=== PATIENT | female | born 1965 | race Caucasian/White ===

== ENCOUNTER 2016-08-20 15:44 | Emergency (ER) | payer OTHER, MEDICAID ==
[~2016-08-20] VITALS: Ht 167.6 cm; Wt 65.0 kg
[~2016-08-20 15:44] MED LIST: CETI10 PO; DIAZ5TAB PO; GABA100C4 PO; IBUP400T20 PO; IBUP800T23 PO; LORA10TA PO; RANI150T PO
[2016-08-20 15:45] VITALS: BP 181/100; PULSE 100; RESP 24; TEMP 97.5; O2SAT 97
[2016-08-20 16:47] LABS: AUTOMATED NEUTROPHIL # 7.5 TH/MM3 (1.8-7.7); BASOPHIL # 0.1 TH/MM3 (0-0.2); BASOPHIL % 0.8 % (0.0-2.0); EOSINOPHIL # 0.1 TH/MM3 (0-0.4); EOSINOPHIL % 1.1 % (0.0-4.0); HEMATOCRIT 37.7 % (35.0-46.0); HEMO FLAGS DIFF FINAL; LYMPH % 18.3 % (9.0-44.0); LYMPHOCYTE # 1.9 TH/MM3 (1.0-4.8); MEAN CELL VOLUME 99.1 FL (80.0-100.0); MEAN CORPUSCULAR HEMOGLOBIN 34.8 PG (27.0-34.0); MEAN CORPUSCULAR HGB CONC 35.1 % (32.0-36.0); MONO % 6.8 % (0.0-8.0); PLATELET COUNT 313 TH/MM3 (150-450); WHITE BLOOD COUNT 10.3 TH/MM3 (4.0-11.0)
[2016-08-20 17:11] LABS: ANION GAP 10 MEQ/L (5-15); BICARBONATE 26.5 MEQ/L (21.0-32.0); BLOOD UREA NITROGEN 10 MG/DL (7-18); CHLORIDE 105 MEQ/L (98-107); GLOMERULAR FILTRATION RATE 87 ML/MIN (>89); POTASSIUM 3.9 MEQ/L (3.5-5.1); SODIUM (NA) 141 MEQ/L (136-145)
[2016-08-20 17:15] LABS: CREATINE KINASE 269 U/L (26-192)
[2016-08-20 17:28] LABS: CKMB 3.8 NG/ML (0.5-3.6)
[2016-08-20] MEDS ORDERED: LORazepam 2 MG/ML VIAL IV PUSH ONE (17:30)
[2016-08-20 18:17] VITALS: BP 149/96; PULSE 96; RESP 23; O2SAT 99
--- NOTE | 2016-08-20 18:51 | RADRPT ---
EXAM DATE/TIME: 08/20/2016 18:39 [place] COMPARISON: No previous studies available for comparison. INDICATIONS : Patient has had chest pain since yesterday. MEDICAL HISTORY : None. SURGICAL HISTORY : None. ENCOUNTER: Initial ACUITY: 1 day PAIN SCORE: 10/10 LOCATION: chest FINDINGS: PA and lateral views of the chest demonstrate the lungs to be symmetrically aerated without evidence of mass, infiltrate or effusion. The cardiomediastinal contours are unremarkable. Osseous structure s are intact. CONCLUSION: No acute disease. Tejas Beck MD on August 20, 2016 at 18:49 Board Certified Radiologist. This report was verified electronically.
--- NOTE | 2016-08-20 19:05 | PD ---
HPI Chief Complaint: Anxiety Time Seen by Provider: 17:16 Travel History International Travel<30 days: No Contact w/Intl Traveler<30days: No Traveled to known affect area: No History of Present Illness HPI Is a 51-year-old female presents emergency department for an anxiety attack. Patient states she had these many times in the past. She states she feels some difficulty breathing as well as a funny sensation in her chest. [facility] she is a , she has been on multiple medications the past including BuSpar which she is not currently taking any Having medicines. She states the only thing that worked for her in the past clonidine which she does not have any more of. Patient on arrival is tearful appears quite anxious and hyperactive. She denies any suicidal ideation and homicidal ideation. She does endorse depressed mood. She is an occasional smoker denies having blood pressure does have a history of high cholesterol with post menopausal. PFSH Past Medical History Anxiety: Yes Depression: Yes Diabetes: No Diminished Hearing: No Gastrointestinal Disorders: Yes GERD: Yes Immune Disorder: No Neurologic: Yes ?: Not Menopausal: Yes : 5 Para: 3 : 2 Past Surgical History Appendectomy: Yes Social History Alcohol Use: Yes Tobacco Use: No Substance Use: No Allergies-Medications (Allergen,Severity, Reaction): Coded Allergies: No Known Allergies (Unverified , 08/20/16) Reported Meds & Prescriptions Reported Meds & Active Scripts Active Ranitidine (Ranitidine HCl) 150 Mg Tab 150 Mg PO BID Ibuprofen 800 Mg Tab 800 Mg PO Q8H PRN Review of Systems Except as stated in HPI: all other systems reviewed are Neg Physical Exam Narrative GENERAL: Well-developed well-nourished appears quite anxious. SKIN: Warm and dry. HEAD: Atraumatic. Normocephalic. EYES: Pupils equal and round. No scleral icterus. No injection or drainage. ENT: No nasal bleeding or discharge. Mucous membranes pink and moist. NECK: Trachea midline. No JVD. CARDIOVASCULAR: Regular rate and rhythm. No murmur appreciated. RESPIRATORY: No accessory muscle use. Clear to auscultation. Breath sounds equal bilaterally. GASTROINTESTINAL: Abdomen soft, non-tender, nondistended. Hepatic and splenic margins not palpable. MUSCULOSKELETAL: No obvious deformities. No clubbing. No cyanosis. No edema. NEUROLOGICAL: Awake and alert. No obvious cranial nerve deficits. Motor grossly within normal limits. Normal speech. PSYCHIATRIC: Anxious and depressed affect. Depressed and anxious mood. Patient denies suicidal homicidal ideation. Cries during examination. Data Data Last Documented VS Vital Signs Date Time Temp Pulse Resp B/P Pulse Ox O2 Delivery O2 Flow Rate FiO2 08/20/16 19:07 103 22 140/85 98 08/20/16 18:17 Room Air 08/20/16 15:45 97.5 Orders Electrocardiogram (08/20/16 16:18) Complete Blood Count With Diff (08/20/16 16:18) Basic Metabolic Panel (Bmp) (08/20/16 16:18) Ckmb (Isoenzyme) Profile (08/20/16 16:18) Troponin I (08/20/16 16:18) CKMB (08/20/16 16:25) CKMB% (08/20/16 16:25) D-Dimer (08/20/16 17:25) Lorazepam Inj (Ativan Inj) (08/20/16 17:30) Chest, Pa & Lat (08/20/16 ) Labs Laboratory Tests Test 08/20/16 16:25 White Blood Count 10.3 TH/MM3 Red Blood Count 3.80 MIL/MM3 Hemoglobin 13.2 GM/DL Hematocrit 37.7 % Mean Corpuscular Volume 99.1 FL Mean Corpuscular Hemoglobin 34.8 PG Mean Corpuscular Hemoglobin 35.1 % Concent Red Cell Distribution Width 12.0 % Platelet Count 313 TH/MM3 Mean Platelet Volume 7.7 FL Neutrophils (%) (Auto) 73.0 % Lymphocytes (%) (Auto) 18.3 % Monocytes (%) (Auto) 6.8 % Eosinophils (%) (Auto) 1.1 % Basophils (%) (Auto) 0.8 % Neutrophils # (Auto) 7.5 TH/MM3 Lymphocytes # (Auto) 1.9 TH/MM3 Monocytes # (Auto) 0.7 TH/MM3 Eosinophils # (Auto) 0.1 TH/MM3 Basophils # (Auto) 0.1 TH/MM3 CBC Comment DIFF FINAL Differential Comment D-Dimer Quantitative (PE/DVT) LESS THAN 0.19 MG/L FEU Sodium Level 141 MEQ/L Potassium Level 3.9 MEQ/L Chloride Level 105 MEQ/L Carbon Dioxide Level 26.5 MEQ/L Anion Gap 10 MEQ/L Blood Urea Nitrogen 10 MG/DL Creatinine 0.71 MG/DL Estimat Glomerular Filtration 87 ML/MIN Rate Random Glucose 103 MG/DL Calcium Level 9.1 MG/DL Total Creatine Kinase 269 U/L Creatine Kinase MB 3.8 NG/ML Creatine Kinase MB % 1.4 % Troponin I LESS THAN 0.02 NG/ML MDM Medical Decision Making Medical Screen Exam Complete: Yes Emergency Medical Condition: Yes Interpretation(s) EKG shows normal sinus rhythm normal axis normal R-wave progression. Intervals within normal limits, this normal EKG. Differential Diagnosis Anxiety, PE, ND, ACS. Narrative Course Patient roomed in the emergency department, given Ativan 1 mg IV. D-dimer negative, troponin negative, EKG reassuring. Lengthy discussion with the patient regarding her symptoms could represent anxiety however cannot completely exclude ACS without a stress test. She does have risk factors including smoking hyper lipid and post menopausal. Discussed she needs to consider admission for a stress test and she declines this time stating [facility] Discussed with her that there is some rest doing this and she verbalized understanding and accepted risks of and disability. Discussed need for [facility] short with the [facility]. Patient then asked for prescriptions for benzodiazepines and I am disinclined to honor this request this time stating risk of addiction. I did offer Zoloft prescription for long-term control and she declined.. Diagnosis Primary Impression: Atypical chest pain Additional Impression: Panic attack Disposition: 01 DISCHARGE HOME Condition: Stable Kraig Diaz MD Aug 20, 2016 19:05
[2016-08-20 19:07] VITALS: BP 140/85
--- NOTE | 2016-08-20 20:39 | EKG ---
Date Performed: 08/20/2016 Time Performed: 16:25:00 PTAGE: 51 years EKG: Sinus rhythm WITH SHORT AK INTERVAL BORDERLINE ECG NO PREVIOUS TRACING DOCTOR: Joe Nunez Interpretating Date/Time 08/30/2016 07:12:57
== END 2016-08-20 19:29 | disposition home or self-care (01) ==
LOC: NEPE 15:44
DX: R07.89 Other chest pain (principal); F41.0 Panic disorder [episodic paroxysmal anxiety]; R94.31 Abnormal electrocardiogram [ECG] [EKG]; R06.00 Dyspnea, unspecified; E78.00 Pure hypercholesterolemia, unspecified; Z72.0 Tobacco use; Z78.0 Asymptomatic menopausal state; Z86.59 Personal history of other mental and behavioral disorders; Z87.19 Personal history of other diseases of the digestive system; Z86.69 Personal history of other diseases of the nervous system and sense organs
CPT/HCPCS: 71020; 80048; 82550; 82552; 84484; 85025; 85379; 93005; 96374; 99284; J2060

== ENCOUNTER 2016-10-17 09:45 | Emergency (ER) | payer OTHER, MEDICAID ==
[~2016-10-17] VITALS: Ht 167.6 cm; Wt 59.0 kg
[~2016-10-17 09:45] MED LIST changes: -CETI10 PO; -DIAZ5TAB PO; -GABA100C4 PO; -IBUP400T20 PO; -LORA10TA PO
[2016-10-17 09:48] VITALS: BP 138/65; PULSE 72; RESP 14; TEMP 98.2; O2SAT 98
--- NOTE | 2016-10-17 10:42 | PD ---
HPI . left thumb infection for 1 week Chief Complaint: Skin Problem Time Seen by Provider: 10:42 Travel History International Travel<30 days: No Contact w/Intl Traveler<30days: No Traveled to known affect area: No History of Present Illness HPI 51-year-old female here with complaints of left thumb infection for one week. Patient says that her tried to squeeze it for her and little bit of pus came out. She's been trying to take care of at home, but states that it's not getting better. She decided to come to the emergency department for further evaluation. She denies any fever or chills. She has no other complaints. PFSH Past Medical History Anxiety: Yes Depression: Yes Diabetes: No Diminished Hearing: No Gastrointestinal Disorders: Yes GERD: Yes Immune Disorder: No Neurologic: Yes ?: Not Menopausal: Yes : 5 Para: 3 : 2 Past Surgical History Appendectomy: Yes Social History Alcohol Use: Yes Tobacco Use: No Substance Use: No Allergies-Medications (Allergen,Severity, Reaction): Coded Allergies: No Known Allergies (Unverified , 10/17/16) Reported Meds & Prescriptions Reported Meds & Active Scripts Active Bactrim DS (Sulfamethoxazole-Trimethoprim) 800-160 Mg Tab 1 Tab PO BID Ranitidine (Ranitidine HCl) 150 Mg Tab 150 Mg PO BID Ibuprofen 800 Mg Tab 800 Mg PO Q8H PRN Review of Systems General / Constitutional: No: Fever Eyes: No: Visual changes HENT: No: Headaches Cardiovascular: No: Chest Pain or Discomfort Respiratory: No: Shortness of Breath Gastrointestinal: No: Abdominal Pain Genitourinary: No: Dysuria Musculoskeletal: No: Pain Skin: Positive Other (left thumb infection ), No Rash Neurologic: No: Weakness Psychiatric: No: Depression Endocrine: No: Polydipsia Hematologic/Lymphatic: No: Easy Bruising Physical Exam Narrative GENERAL: AAO x 3, no acute distress, Well-nourished, well-developed patient. SKIN: Warm and dry. No visible rashes or bruising. Left thumb with a small paronychia on the medial aspect. There is a slight area of induration and some fluctuance. HEAD: Normocephalic and atraumatic. EYES: No scleral icterus. No injection or drainage. EOM intact, PERRLA ENT: No nasal drainage noted. Mucous membranes pink. Airway patent. NECK: Supple, trachea midline. No JVD. CARDIOVASCULAR: Regular rate and rhythm without murmurs, gallops, or rubs. RESPIRATORY: Breath sounds equal bilaterally. No accessory muscle use. No rhonchi or rales. GASTROINTESTINAL: Abdomen soft, non-tender, nondistended. EXTREMITIES: No cyanosis or edema. BACK: Nontender without obvious deformity. No CVA tenderness. PSYCH: AAO x 3, normal affect. Data Data Last Documented VS Vital Signs Date Time Temp Pulse Resp B/P Pulse Ox O2 Delivery O2 Flow Rate FiO2 10/17/16 09:48 98.2 72 14 138/65 98 Orders Lidocaine 1% Inj (50 Ml) (Xylocaine 1% I (10/17/16 10:45) Wound Culture And Gram Stain (10/17/16 10:56) Change Dressing (10/17/16 11:08) MDM Medical Decision Making Medical Screen Exam Complete: Yes Emergency Medical Condition: Yes Medical Record Reviewed: Yes Differential Diagnosis Left thumb paronychia, cellulitis, less likely sepsis Narrative Course 51-year-old female here with complaints of left thumb infection for one week. Patient says that her tried to squeeze it for her and little bit of pus came out. She's been trying to take care of at home, but states that it's not getting better. She decided to come to the emergency department for further evaluation. She denies any fever or chills. She has no other complaints. Patient seen and examined. She has a left thumb paronychia. I recommend incision and drainage. Patient consents to procedure Patient tolerated without incident. Cultures were taken. If there are any abnormalities requiring change of antibiotics, we will contact the patient. I placed her on Bactrim to cover for MRSA. [facility]3 [facility]. We discussed cleaning the area with soap and water daily. Patient verbalized understanding of instructions, questions were answered, and thanked me for their care. I advised them if their condition worsens, please return to the nearest emergency room for further care. Procedures Procedure Narrative After the risks and benefits were discussed the following procedure was performed: left thumb paronychia INCISION AND DRAINAGE OF ABSCESS: The area was prepped and was sterilely draped. A subcutaneous wheal of 1 % Xylocaine with a total number 4 mL was used to anesthetize the area. The area was properly anesthetized. A number 11 scalpel was used to make a .04 -cm incision across the area of the abscess. Cultures were obtained. The abscess was drained an irrigated with normal saline. Sterile dressing applied. Diagnosis Primary Impression: Paronychia Qualified Code: L03.012 - Paronychia, left Patient Instructions: General Instructions Additional Instructions: [place] for worsening signs of infection which include increased fever,redness, increased warmth, purulent drainage, increased swelling or streaking. If any of these develop, please return to the nearest emergency department. Wash this area with soap and water daily. [facility] discussed. Med/Other Pt SpecificInfo: Prescription(s) given Scripts Sulfamethoxazole-Trimethoprim (Bactrim DS)800-160 Mg Tab1 Tab PO BID #20 TAB Prov:Kuldeep Vaz MD 10/17/16 Disposition: 01 DISCHARGE HOME Condition: Stable Cheryl Eason Oct 17, 2016 10:42
[2016-10-17] MEDS ORDERED: LIDOCAINE HCL 1% 50 ML VIAL INFIL ONE (10:45)
[2016-10-17] MEDS ORDERED: BACT800T5 PO (11:06)
== END 2016-10-17 11:31 | disposition home or self-care (01) ==
LOC: NEPK 09:45
DX: L03.012 Cellulitis of left finger (principal); B95.61 Methicillin susceptible Staphylococcus aureus infection as the cause of diseases classified elsewhere
CPT/HCPCS: 10060; 86403; 87070; 87186